=== PATIENT | female | born 1980 | race Caucasian/White ===

== ENCOUNTER 2024-06-09 13:09 | Outpatient (REF) | payer OTHER, SELFPAY ==
[2024-06-09 14:46] LABS: Erythrocyte Sedimentation Rate 12 MM/HR (0-20)
[2024-06-10 23:34] LABS: Lyme Abs Screen <0.90 index
== END 2024-06-09 13:10 | disposition home or self-care (01) ==
LOC: HO.LAB 13:09
PROVIDERS: PCP Internal Medicine; Visit Provider Psychiatry & Neurology Neurology
DX: G93.49 Other encephalopathy (principal)
CPT/HCPCS: 36415; 85652; 86617; 86618